=== PATIENT | female | born 1975 | race Caucasian/White ===

== ENCOUNTER 2019-04-04 14:57 | Emergency (ER) | payer OTHER, SELFPAY ==
[2019-04-04 15:11] VITALS: BP 141/92; PULSE 82; RESP 18; TEMP 37; O2SAT 99
--- NOTE | 2019-04-04 15:27 | DI.RAD_ITS ---
SYMPTOM/DIAGNOSIS: FELL, SHOULDER DEFORMITY RIGHT SHOULDER: There is a comminuted fracture of the humeral head. There is a fracture extending transversely through the surgical neck as well as a comminuted fragment involving the greater tuberosity. There is no evidence of dislocation. The AC joint is not widened. IMPRESSION: Comminuted fracture of the proximal humerus.
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
[2019-04-04] MEDS: Acetaminophen 500 MG TAB 1000 MG PO (17:12)
== END 2019-04-04 17:20 | disposition home or self-care (01) ==
PROVIDERS: Emergency Provider Physician Assistant
DX: S42.251A Displaced fracture of greater tuberosity of right humerus, initial encounter for closed fracture (principal); V18.1XXA Pedal cycle passenger injured in noncollision transport accident in nontraffic accident, initial encounter
CPT/HCPCS: 99283; 73030; 99282; L3650